=== PATIENT | male | born 1955 | race Caucasian/White ===

== ENCOUNTER 2018-10-31 12:18 | Emergency (ER) | payer OTHER ==
[~2018-10-31] VITALS: Ht 182.9 cm; Wt 81.6 kg
[2018-10-31] MEDS ORDERED: HYDROCODONE/APAP 5-325MG TABLET PO ONE (12:30)
[2018-10-31] MEDS ORDERED: HYDROCODONE/APAP 5-325MG TABLET ONE (12:35)
[2018-10-31] MEDS ORDERED: TDAP DIPH,PERTUSS,TET VAC/PF 0.5 ML DISP.SYRIN IM ONE ×2 (14:00→14:07)
--- NOTE | 2018-10-31 14:31 | NUR ---
Patient discharged to home in stable conditon. Written and verbal after care instructions given. Patient verbalizes understanding of instructions.PT WALKS IN STEADY GAIT. PT ACCOMPANIED BY FAMILY MEMBERS. HOSPITAL SANDWICH AND JUICE PROVIDED FOR PT.
== END 2018-10-31 14:31 | disposition home or self-care (01) ==
LOC: ER 12:18
DX: S43.101A Unspecified dislocation of right acromioclavicular joint, initial encounter (principal); S13.4XXA Sprain of ligaments of cervical spine, initial encounter; S01.312A Laceration without foreign body of left ear, initial encounter; Z88.0 Allergy status to penicillin; V09.9XXA Pedestrian injured in unspecified transport accident, initial encounter; Y93.89 Activity, other specified; Y92.89 Other specified places as the place of occurrence of the external cause; Y99.8 Other external cause status
CPT/HCPCS: 70450; 71250; 72125; 73200; 90715; A4663